=== PATIENT | male | born 1930 | race Caucasian/White ===

== ENCOUNTER 2016-08-28 14:53 | Inpatient (IN) | payer MEDICARE, BC ==
[~2016-08-28] VITALS: Ht 180.3 cm; Wt 108.4 kg
[~2016-08-28 14:53] MED LIST: AMLO5TAB66 PO; BUME1TAB12 PO; CAPT50TA3 PO; CELE200 PO; ESOM40CA PO; INSLAN SQ; SIMV40TA5 PO; SITA1TAB6 PO; [UNRECOGNIZED DRUG - CODE] PO
[2016-08-28] MEDS ORDERED: DEXTROSE 50%-WATER 25 GM/50 ML SYRINGE IVP PRN (16:45)
[2016-08-28] MEDS ORDERED: ACETAMINOPHEN 325 MG TABLET PO PRN (16:45)
[2016-08-28] MEDS ORDERED: DOCUSATE SODIUM 283 MG/5 ML MINI-ENEMA PR PRN (16:45)
[2016-08-28 17:00] VITALS: BP 131/62
[2016-08-28 18:01] LABS: GLUCOSE,POINT OF CARE 220 MG/DL (70-110)
[2016-08-28] MEDS: INSULIN ASPART 100 UNITS/ML SQ PRN ×2 (18:08→20:27)
[2016-08-28 20:13] VITALS: BP 112/63
[2016-08-28] MEDS: ATORVASTATIN CALCIUM 40 MG TABLET PO SCH (20:14)
[2016-08-28] MEDS: PANTOPRAZOLE SODIUM 40 MG DR TABLET PO SCH (20:14)
[2016-08-28] MEDS: QUEtiapine FUMARATE 25 MG TABLET PO SCH (20:14)
[2016-08-28] MEDS: SENNA 187 MG TABLET PO SCH (20:14)
[2016-08-28] MEDS: DOCUSATE SODIUM 100 MG CAPSULE PO SCH (20:14)
[2016-08-28] MEDS: METOPROLOL TARTRATE 25 MG TABLET PO SCH (20:15)
[2016-08-28] MEDS: HEPARIN SODIUM,PORCINE 5,000 UNITS/ML VIAL SQ SCH (20:21)
[2016-08-28] MEDS ORDERED: INSULIN GLARGINE,HUM.REC.ANLOG 100 UNITS/ML SQ SCH (21:00)
[2016-08-28 22:46] LABS: GLUCOSE COMMENT 1 Received Meds; GLUCOSE,POINT OF CARE 233 MG/DL (70-110)
[2016-08-29 00:50] VITALS: BP 130/68
[2016-08-29 05:51] LABS: GLUCOSE,POINT OF CARE 155 MG/DL (70-110)
[2016-08-29 07:16] LABS: ALBUMIN 2.9 g/dL (3.4-5.0); BILIRUBIN,TOTAL 0.7 mg/dL (0.1-1.0); CALCIUM, TOTAL 8.9 mg/dL (8.8-10.5); CREATININE 1.33 mg/dL (0.60-1.30); POTASSIUM 3.4 mmol/L (3.5-5.1); TOTAL PROTEIN, SERUM 6.6 g/dL (6.4-8.2)
[2016-08-29 07:23] LABS: BASOPHILS % (AUTO) 0.3 % (0.0-2.0); EOSINOPHILS % (AUTO) 2.6 % (1.0-6.0); HEMATOCRIT 38.1 % (41-53); HEMOGLOBIN 12.3 g/dL (13.5-17.5); LYMPHOCYTES # (AUTO) 1.1 K/uL (1.0-4.8); LYMPHOCYTES % (AUTO) 12.2 % (22.0-44.0); MEAN CORPUSCULAR HEMOGLOBIN 26.3 pg (26.0-34.0); MEAN CORPUSCULAR HGB CONC 32.3 G/dL (31.0-37.0); MEAN CORPUSCULAR VOLUME 82 fL (80-100); MONOCYTES # (AUTO) 1.4 K/uL (0.1-1.0); NEUTROPHILS # (AUTO) 6.4 K/uL (1.8-7.7); NEUTROPHILS % (AUTO) 69.9 % (40.0-70.0); PLATELET COUNT (AUTO) 184 K/uL (150-450); RED BLOOD CELL COUNT(AUTO) 4.66 MIL/uL (4.50-5.90); RED CELL DISTRIBUTION WIDTH 17.1 % (11.5-14.5); WHITE BLOOD COUNT (AUTO) 9.1 K/uL (4.5-11.0)
[2016-08-29 07:43] VITALS: BP 141/79
[2016-08-29] MEDS: BUMETANIDE 1 MG TABLET PO SCH (08:09)
[2016-08-29] MEDS: DOCUSATE SODIUM 100 MG CAPSULE PO SCH ×2 (08:10→21:14)
[2016-08-29] MEDS: POLYETHYLENE GLYCOL 3350 17 GM PACKET PO SCH (08:11)
[2016-08-29] MEDS: METOPROLOL TARTRATE 25 MG TABLET PO SCH ×2 (08:11→21:00)
[2016-08-29] MEDS: CLOPIDOGREL BISULFATE 75 MG TABLET PO SCH (08:11)
[2016-08-29] MEDS: HEPARIN SODIUM,PORCINE 5,000 UNITS/ML VIAL SQ SCH ×2 (08:11→20:59)
[2016-08-29] MEDS: PANTOPRAZOLE SODIUM 40 MG DR TABLET PO SCH ×2 (08:11→21:00)
[2016-08-29] MEDS: INSULIN ASPART 100 UNITS/ML SQ PRN ×4 (08:17→21:03)
[2016-08-29] MEDS: ACETAMINOPHEN 325 MG TABLET PO PRN ×3 (09:41→21:00)
[2016-08-29 10:16] LABS: APPEARANCE,URINE CLEAR (CLEAR); GLUCOSE, URINE (UA) 500 mg/dL (NEGATIVE); KETONES,URINE NEGATIVE (NEGATIVE); LEUKOCYTE ESTERASE ,URINE NEGATIVE (NEGATIVE); OCCULT BLOOD,URINE NEGATIVE (NEGATIVE); PH,URINE 5.5 (5.0-8.0); PROTEIN,URINE TRACE (NEGATIVE)
[2016-08-29 10:21] LABS: RBC,URINE None Seen /HPF (0-2); WBC,URINE None Seen /HPF (0-5)
[2016-08-29] MEDS ORDERED: POTASSIUM CHLORIDE 10% 40 MEQ/30 ML LIQUID UDCUP PO ONE (11:00)
[2016-08-29 12:28] LABS: GLUCOSE,POINT OF CARE 247 MG/DL (70-110)
[2016-08-29 15:51] VITALS: BP 123/69
[2016-08-29 16:44] VITALS: BP 123/69
[2016-08-29 17:27] LABS: GLUCOSE,POINT OF CARE 200 MG/DL (70-110)
[2016-08-29 21:00] VITALS: BP 121/73
[2016-08-29] MEDS: ATORVASTATIN CALCIUM 40 MG TABLET PO SCH (21:00)
[2016-08-29] MEDS: SENNA 187 MG TABLET PO SCH (21:00)
[2016-08-29] MEDS: QUEtiapine FUMARATE 25 MG TABLET PO SCH (21:00)
[2016-08-29] MEDS ORDERED: INSULIN DETEMIR 100 UNITS/ML SQ SCH (21:00)
[2016-08-29] MEDS: INSULIN DETEMIR 100 UNITS/ML SQ SCH (21:01)
[2016-08-29 21:52] LABS: GLUCOSE,POINT OF CARE 196 MG/DL (70-110)
[2016-08-30 00:51] VITALS: BP 116/60
[2016-08-30 06:17] LABS: GLUCOSE,POINT OF CARE 152 MG/DL (70-110)
[2016-08-30 07:15] VITALS: BP 132/72
[2016-08-30] MEDS: ACETAMINOPHEN 325 MG TABLET PO PRN ×2 (07:57→19:06)
[2016-08-30] MEDS: POLYETHYLENE GLYCOL 3350 17 GM PACKET PO SCH (08:34)
[2016-08-30] MEDS: CLOPIDOGREL BISULFATE 75 MG TABLET PO SCH (08:34)
[2016-08-30] MEDS: DOCUSATE SODIUM 100 MG CAPSULE PO SCH ×2 (08:34→21:07)
[2016-08-30] MEDS: PANTOPRAZOLE SODIUM 40 MG DR TABLET PO SCH ×2 (08:34→21:08)
[2016-08-30] MEDS: BUMETANIDE 1 MG TABLET PO SCH (08:34)
[2016-08-30] MEDS: METOPROLOL TARTRATE 25 MG TABLET PO SCH ×2 (08:34→21:08)
[2016-08-30] MEDS: HEPARIN SODIUM,PORCINE 5,000 UNITS/ML VIAL SQ SCH ×2 (08:35→21:08)
[2016-08-30] MEDS: INSULIN ASPART 100 UNITS/ML SQ PRN ×4 (08:41→21:18)
[2016-08-30 11:47] LABS: GLUCOSE COMMENT 1 Received Meds; GLUCOSE,POINT OF CARE 238 MG/DL (70-110)
[2016-08-30 15:11] VITALS: BP 132/60
[2016-08-30 18:16] LABS: GLUCOSE COMMENT 1 Received Meds; GLUCOSE,POINT OF CARE 187 MG/DL (70-110)
[2016-08-30 21:00] VITALS: BP 126/62
[2016-08-30] MEDS: QUEtiapine FUMARATE 25 MG TABLET PO SCH ×2 (21:00→21:08)
[2016-08-30] MEDS: ATORVASTATIN CALCIUM 40 MG TABLET PO SCH (21:08)
[2016-08-30] MEDS: SENNA 187 MG TABLET PO SCH (21:08)
[2016-08-30] MEDS: INSULIN DETEMIR 100 UNITS/ML SQ SCH (21:17)
[2016-08-30 23:01] LABS: GLUCOSE COMMENT 1 Received Meds; GLUCOSE,POINT OF CARE 234 MG/DL (70-110)
[2016-08-31] VITALS: BP 132/62
[2016-08-31 05:32] LABS: GLUCOSE,POINT OF CARE 159 MG/DL (70-110)
[2016-08-31 07:21] VITALS: BP 144/71
[2016-08-31] MEDS: CLOPIDOGREL BISULFATE 75 MG TABLET PO SCH (08:27)
[2016-08-31] MEDS: PANTOPRAZOLE SODIUM 40 MG DR TABLET PO SCH ×2 (08:27→20:13)
[2016-08-31] MEDS: METOPROLOL TARTRATE 25 MG TABLET PO SCH ×2 (08:27→20:13)
[2016-08-31] MEDS: BUMETANIDE 1 MG TABLET PO SCH (08:27)
[2016-08-31] MEDS: HEPARIN SODIUM,PORCINE 5,000 UNITS/ML VIAL SQ SCH ×2 (08:27→20:13)
[2016-08-31] MEDS: DOCUSATE SODIUM 100 MG CAPSULE PO SCH ×2 (08:28→20:13)
[2016-08-31] MEDS: POLYETHYLENE GLYCOL 3350 17 GM PACKET PO SCH (08:28)
[2016-08-31] MEDS: INSULIN ASPART 100 UNITS/ML SQ PRN ×4 (08:38→20:16)
[2016-08-31 12:32] LABS: GLUCOSE COMMENT 1 Received Meds; GLUCOSE,POINT OF CARE 258 MG/DL (70-110)
[2016-08-31 15:15] VITALS: BP 115/74
[2016-08-31 17:42] LABS: GLUCOSE COMMENT 1 Received Meds; GLUCOSE,POINT OF CARE 252 MG/DL (70-110)
[2016-08-31 20:00] VITALS: BP 134/92
[2016-08-31] MEDS: SENNA 187 MG TABLET PO SCH (20:13)
[2016-08-31] MEDS: QUEtiapine FUMARATE 25 MG TABLET PO SCH (20:13)
[2016-08-31] MEDS: ATORVASTATIN CALCIUM 40 MG TABLET PO SCH (20:13)
[2016-08-31] MEDS: INSULIN DETEMIR 100 UNITS/ML SQ SCH (20:16)
[2016-08-31 21:47] LABS: GLUCOSE COMMENT 1 Received Meds; GLUCOSE,POINT OF CARE 230 MG/DL (70-110)
[2016-08-31] MEDS ORDERED: METO25 PO (22:02)
[2016-08-31] MEDS ORDERED: INSNOV SQ (22:02)
[2016-09-01] VITALS: BP 110/57
[2016-09-01 05:47] LABS: GLUCOSE,POINT OF CARE 154 MG/DL (70-110)
[2016-09-01 07:00] VITALS: BP 124/64
[2016-09-01] MEDS: POLYETHYLENE GLYCOL 3350 17 GM PACKET PO SCH (08:16)
[2016-09-01] MEDS: METOPROLOL TARTRATE 25 MG TABLET PO SCH ×2 (08:16→20:39)
[2016-09-01] MEDS: DOCUSATE SODIUM 100 MG CAPSULE PO SCH ×2 (08:16→20:39)
[2016-09-01] MEDS: BUMETANIDE 1 MG TABLET PO SCH (08:16)
[2016-09-01] MEDS: HEPARIN SODIUM,PORCINE 5,000 UNITS/ML VIAL SQ SCH ×2 (08:17→20:39)
[2016-09-01] MEDS: PANTOPRAZOLE SODIUM 40 MG DR TABLET PO SCH ×2 (08:17→20:39)
[2016-09-01] MEDS: CLOPIDOGREL BISULFATE 75 MG TABLET PO SCH (08:17)
[2016-09-01] MEDS: INSULIN ASPART 100 UNITS/ML SQ PRN ×4 (08:18→20:43)
[2016-09-01 08:40] LABS: ALBUMIN 2.9 g/dL (3.4-5.0); BILIRUBIN,TOTAL 0.5 mg/dL (0.1-1.0); CALCIUM, TOTAL 9.2 mg/dL (8.8-10.5); CREATININE 1.29 mg/dL (0.60-1.30); POTASSIUM 4.2 mmol/L (3.5-5.1); TOTAL PROTEIN, SERUM 7.1 g/dL (6.4-8.2)
[2016-09-01 12:52] LABS: GLUCOSE,POINT OF CARE 236 MG/DL (70-110)
[2016-09-01 15:30] VITALS: BP 129/61
[2016-09-01 20:30] VITALS: BP 122/63
[2016-09-01] MEDS: ATORVASTATIN CALCIUM 40 MG TABLET PO SCH (20:39)
[2016-09-01] MEDS: SENNA 187 MG TABLET PO SCH (20:39)
[2016-09-01] MEDS: MELATONIN 3 MG TABLET PO SCH (20:39)
[2016-09-01] MEDS ORDERED: INSULIN DETEMIR 100 UNITS/ML SQ SCH (21:00)
[2016-09-01 21:52] LABS: GLUCOSE COMMENT 1 Received Meds; GLUCOSE,POINT OF CARE 275 MG/DL (70-110)
[2016-09-01 21:52] LABS: GLUCOSE COMMENT 1 Received Meds; GLUCOSE,POINT OF CARE 234 MG/DL (70-110)
[2016-09-01 23:55] VITALS: BP 108/65
[2016-09-02 05:57] LABS: GLUCOSE,POINT OF CARE 140 MG/DL (70-110)
[2016-09-02 08:03] VITALS: BP 144/75
[2016-09-02] MEDS: DOCUSATE SODIUM 100 MG CAPSULE PO SCH ×2 (08:14→20:18)
[2016-09-02] MEDS: BUMETANIDE 1 MG TABLET PO SCH (08:14)
[2016-09-02] MEDS: METOPROLOL TARTRATE 25 MG TABLET PO SCH ×2 (08:14→20:12)
[2016-09-02] MEDS: POLYETHYLENE GLYCOL 3350 17 GM PACKET PO SCH (08:14)
[2016-09-02] MEDS: CLOPIDOGREL BISULFATE 75 MG TABLET PO SCH (08:15)
[2016-09-02] MEDS: HEPARIN SODIUM,PORCINE 5,000 UNITS/ML VIAL SQ SCH ×2 (08:15→20:12)
[2016-09-02] MEDS: PANTOPRAZOLE SODIUM 40 MG DR TABLET PO SCH ×2 (08:15→20:12)
[2016-09-02 13:21] LABS: GLUCOSE,POINT OF CARE 219 MG/DL (70-110)
[2016-09-02] MEDS: INSULIN ASPART 100 UNITS/ML SQ PRN ×3 (13:37→20:15)
[2016-09-02 15:30] VITALS: BP 106/61
[2016-09-02 17:22] LABS: GLUCOSE COMMENT 1 Received Meds; GLUCOSE,POINT OF CARE 220 MG/DL (70-110)
[2016-09-02 20:00] VITALS: BP 138/63
[2016-09-02] MEDS: ATORVASTATIN CALCIUM 40 MG TABLET PO SCH (20:12)
[2016-09-02] MEDS: MELATONIN 3 MG TABLET PO SCH (20:12)
[2016-09-02] MEDS: SENNA 187 MG TABLET PO SCH (20:12)
[2016-09-02] MEDS: INSULIN DETEMIR 100 UNITS/ML SQ SCH (20:16)
[2016-09-02 20:57] LABS: GLUCOSE COMMENT 1 Received Meds; GLUCOSE,POINT OF CARE 264 MG/DL (70-110)
[2016-09-03] VITALS: BP 130/57
[2016-09-03 05:52] LABS: GLUCOSE,POINT OF CARE 139 MG/DL (70-110)
[2016-09-03 07:15] VITALS: BP 111/54
[2016-09-03] MEDS: DOCUSATE SODIUM 100 MG CAPSULE PO SCH ×2 (08:17→21:18)
[2016-09-03] MEDS: BUMETANIDE 1 MG TABLET PO SCH (08:17)
[2016-09-03] MEDS: HEPARIN SODIUM,PORCINE 5,000 UNITS/ML VIAL SQ SCH ×2 (08:18→21:18)
[2016-09-03] MEDS: POLYETHYLENE GLYCOL 3350 17 GM PACKET PO SCH (08:18)
[2016-09-03] MEDS: PANTOPRAZOLE SODIUM 40 MG DR TABLET PO SCH ×2 (08:18→21:18)
[2016-09-03] MEDS: CLOPIDOGREL BISULFATE 75 MG TABLET PO SCH (08:18)
[2016-09-03] MEDS: METOPROLOL TARTRATE 25 MG TABLET PO SCH ×2 (08:18→21:18)
[2016-09-03 12:37] LABS: GLUCOSE,POINT OF CARE 210 MG/DL (70-110)
[2016-09-03] MEDS: INSULIN ASPART 100 UNITS/ML SQ PRN ×3 (13:11→21:21)
[2016-09-03 16:51] VITALS: BP 114/51
[2016-09-03 18:18] LABS: GLUCOSE COMMENT 1 Received Meds; GLUCOSE,POINT OF CARE 228 MG/DL (70-110)
[2016-09-03 21:00] VITALS: BP 131/72
[2016-09-03] MEDS: ATORVASTATIN CALCIUM 40 MG TABLET PO SCH (21:18)
[2016-09-03] MEDS: MELATONIN 3 MG TABLET PO SCH (21:18)
[2016-09-03] MEDS: SENNA 187 MG TABLET PO SCH (21:18)
[2016-09-03] MEDS: INSULIN DETEMIR 100 UNITS/ML SQ SCH (21:19)
[2016-09-03 21:22] LABS: GLUCOSE COMMENT 1 Received Meds; GLUCOSE,POINT OF CARE 256 MG/DL (70-110)
[2016-09-04 00:48] VITALS: BP 129/58
[2016-09-04 06:07] LABS: GLUCOSE,POINT OF CARE 152 MG/DL (70-110)
[2016-09-04 08:12] VITALS: BP 125/77
[2016-09-04] MEDS: CLOPIDOGREL BISULFATE 75 MG TABLET PO SCH (09:57)
[2016-09-04] MEDS: HEPARIN SODIUM,PORCINE 5,000 UNITS/ML VIAL SQ SCH ×2 (09:57→21:17)
[2016-09-04] MEDS: METOPROLOL TARTRATE 25 MG TABLET PO SCH ×2 (09:57→21:18)
[2016-09-04] MEDS: PANTOPRAZOLE SODIUM 40 MG DR TABLET PO SCH ×2 (09:57→21:18)
[2016-09-04] MEDS: DOCUSATE SODIUM 100 MG CAPSULE PO SCH ×2 (09:57→21:18)
[2016-09-04] MEDS: POLYETHYLENE GLYCOL 3350 17 GM PACKET PO SCH (09:57)
[2016-09-04] MEDS: BUMETANIDE 1 MG TABLET PO SCH (09:57)
[2016-09-04] MEDS: INSULIN ASPART 100 UNITS/ML SQ PRN ×4 (10:00→21:23)
[2016-09-04 13:01] LABS: GLUCOSE,POINT OF CARE 284 MG/DL (70-110)
[2016-09-04 15:46] VITALS: BP 136/63
[2016-09-04 19:57] LABS: GLUCOSE COMMENT 1 Received Meds; GLUCOSE,POINT OF CARE 188 MG/DL (70-110)
[2016-09-04] MEDS: ATORVASTATIN CALCIUM 40 MG TABLET PO SCH (21:17)
[2016-09-04] MEDS: SENNA 187 MG TABLET PO SCH (21:18)
[2016-09-04] MEDS: MELATONIN 3 MG TABLET PO SCH (21:18)
[2016-09-04] MEDS: INSULIN DETEMIR 100 UNITS/ML SQ SCH (21:21)
[2016-09-04 21:24] VITALS: BP 124/65
[2016-09-04 21:51] LABS: GLUCOSE COMMENT 1 Received Meds; GLUCOSE,POINT OF CARE 253 MG/DL (70-110)
[2016-09-05] VITALS: BP 127/57
[2016-09-05 05:52] LABS: GLUCOSE,POINT OF CARE 139 MG/DL (70-110)
[2016-09-05] MEDS: ACETAMINOPHEN 325 MG TABLET PO PRN (06:03)
[2016-09-05 07:14] VITALS: BP 135/66
[2016-09-05] MEDS: HEPARIN SODIUM,PORCINE 5,000 UNITS/ML VIAL SQ SCH ×2 (08:03→20:22)
[2016-09-05] MEDS: BUMETANIDE 1 MG TABLET PO SCH (08:03)
[2016-09-05] MEDS: DOCUSATE SODIUM 100 MG CAPSULE PO SCH ×2 (08:03→20:22)
[2016-09-05] MEDS: METOPROLOL TARTRATE 25 MG TABLET PO SCH ×2 (08:03→20:22)
[2016-09-05] MEDS: POLYETHYLENE GLYCOL 3350 17 GM PACKET PO SCH (08:03)
[2016-09-05] MEDS: PANTOPRAZOLE SODIUM 40 MG DR TABLET PO SCH ×2 (08:03→20:23)
[2016-09-05] MEDS: CLOPIDOGREL BISULFATE 75 MG TABLET PO SCH (08:04)
[2016-09-05 12:31] LABS: GLUCOSE,POINT OF CARE 203 MG/DL (70-110)
[2016-09-05] MEDS: INSULIN ASPART 100 UNITS/ML SQ PRN ×3 (12:32→20:24)
[2016-09-05 15:41] VITALS: BP 111/67
[2016-09-05] MEDS: MELATONIN 3 MG TABLET PO SCH (20:22)
[2016-09-05] MEDS: ATORVASTATIN CALCIUM 40 MG TABLET PO SCH (20:22)
[2016-09-05] MEDS: SENNA 187 MG TABLET PO SCH (20:23)
[2016-09-05] MEDS: INSULIN DETEMIR 100 UNITS/ML SQ SCH (20:26)
[2016-09-05 20:34] VITALS: BP 115/70
[2016-09-06 00:23] VITALS: BP 144/64
[2016-09-06 00:31] LABS: GLUCOSE,POINT OF CARE 266 MG/DL (70-110)
[2016-09-06 00:31] LABS: GLUCOSE,POINT OF CARE 175 MG/DL (70-110)
[2016-09-06 05:57] LABS: GLUCOSE,POINT OF CARE 125 MG/DL (70-110)
[2016-09-06] MEDS: DOCUSATE SODIUM 100 MG CAPSULE PO SCH ×2 (08:30→21:16)
[2016-09-06] MEDS: CLOPIDOGREL BISULFATE 75 MG TABLET PO SCH (08:30)
[2016-09-06] MEDS: PANTOPRAZOLE SODIUM 40 MG DR TABLET PO SCH ×2 (08:31→21:16)
[2016-09-06] MEDS: BUMETANIDE 1 MG TABLET PO SCH (08:31)
[2016-09-06] MEDS: METOPROLOL TARTRATE 25 MG TABLET PO SCH ×2 (08:31→21:16)
[2016-09-06] MEDS: POLYETHYLENE GLYCOL 3350 17 GM PACKET PO SCH (08:31)
[2016-09-06] MEDS: HEPARIN SODIUM,PORCINE 5,000 UNITS/ML VIAL SQ SCH ×2 (08:31→21:16)
[2016-09-06 09:08] VITALS: BP 130/71
[2016-09-06] MEDS: INSULIN ASPART 100 UNITS/ML SQ PRN ×3 (13:24→21:25)
[2016-09-06] MEDS ORDERED: *PATIENT'S OWN MED [ENTER DRUG, DOSE, FREQUENCY IN COMMENTS] CLINICAL PRN ×2 (15:30)
[2016-09-06 17:00] VITALS: BP 118/53
[2016-09-06 17:51] LABS: GLUCOSE,POINT OF CARE 200 MG/DL (70-110)
[2016-09-06 17:51] LABS: GLUCOSE,POINT OF CARE 251 MG/DL (70-110)
[2016-09-06] MEDS: MELATONIN 3 MG TABLET PO SCH (21:16)
[2016-09-06] MEDS: SENNA 187 MG TABLET PO SCH (21:16)
[2016-09-06] MEDS: ATORVASTATIN CALCIUM 40 MG TABLET PO SCH (21:16)
[2016-09-06] MEDS: INSULIN DETEMIR 100 UNITS/ML SQ SCH (21:24)
[2016-09-06 21:50] VITALS: BP 114/68
[2016-09-06 22:27] LABS: GLUCOSE COMMENT 1 Received Meds; GLUCOSE,POINT OF CARE 254 MG/DL (70-110)
[2016-09-06 23:36] VITALS: BP 140/79
[2016-09-07 06:26] LABS: GLUCOSE,POINT OF CARE 116 MG/DL (70-110)
[2016-09-07 08:00] VITALS: BP 141/71
[2016-09-07] MEDS: PANTOPRAZOLE SODIUM 40 MG DR TABLET PO SCH ×2 (09:46→20:01)
[2016-09-07] MEDS: BUMETANIDE 1 MG TABLET PO SCH (09:46)
[2016-09-07] MEDS: POLYETHYLENE GLYCOL 3350 17 GM PACKET PO SCH (09:46)
[2016-09-07] MEDS: METOPROLOL TARTRATE 25 MG TABLET PO SCH ×2 (09:46→20:01)
[2016-09-07] MEDS: CLOPIDOGREL BISULFATE 75 MG TABLET PO SCH (09:46)
[2016-09-07] MEDS: HEPARIN SODIUM,PORCINE 5,000 UNITS/ML VIAL SQ SCH ×2 (09:46→20:01)
[2016-09-07] MEDS: DOCUSATE SODIUM 100 MG CAPSULE PO SCH ×2 (09:46→20:01)
[2016-09-07] MEDS ORDERED: [UNRECOGNIZED DRUG - OTHER] SL PRN (10:30)
[2016-09-07 12:47] LABS: GLUCOSE COMMENT 1 Received Meds; GLUCOSE,POINT OF CARE 170 MG/DL (70-110)
[2016-09-07] MEDS: INSULIN ASPART 100 UNITS/ML SQ PRN ×3 (13:32→20:21)
[2016-09-07 15:50] VITALS: BP 116/60
[2016-09-07] MEDS: ATORVASTATIN CALCIUM 40 MG TABLET PO SCH (20:01)
[2016-09-07] MEDS: SENNA 187 MG TABLET PO SCH (20:01)
[2016-09-07] MEDS: MELATONIN 3 MG TABLET PO SCH (20:02)
[2016-09-07 20:30] VITALS: BP 120/63
[2016-09-07] MEDS: INSULIN DETEMIR 100 UNITS/ML SQ SCH (20:32)
[2016-09-07 20:47] LABS: GLUCOSE,POINT OF CARE 256 MG/DL (70-110)
[2016-09-07 20:47] LABS: GLUCOSE,POINT OF CARE 198 MG/DL (70-110)
[2016-09-08 04:00] VITALS: BP 137/76
[2016-09-08 06:11] LABS: GLUCOSE,POINT OF CARE 154 MG/DL (70-110)
[2016-09-08 07:35] VITALS: BP 115/63
[2016-09-08] MEDS: POLYETHYLENE GLYCOL 3350 17 GM PACKET PO SCH (08:27)
[2016-09-08] MEDS: BUMETANIDE 1 MG TABLET PO SCH (08:27)
[2016-09-08] MEDS: PANTOPRAZOLE SODIUM 40 MG DR TABLET PO SCH ×2 (08:27→20:41)
[2016-09-08] MEDS: CLOPIDOGREL BISULFATE 75 MG TABLET PO SCH (08:27)
[2016-09-08] MEDS: METOPROLOL TARTRATE 25 MG TABLET PO SCH ×2 (08:27→20:42)
[2016-09-08] MEDS: DOCUSATE SODIUM 100 MG CAPSULE PO SCH ×2 (08:28→20:42)
[2016-09-08] MEDS: HEPARIN SODIUM,PORCINE 5,000 UNITS/ML VIAL SQ SCH ×2 (08:29→20:41)
[2016-09-08] MEDS: INSULIN ASPART 100 UNITS/ML SQ PRN ×4 (08:33→20:47)
[2016-09-08 11:52] LABS: GLUCOSE,POINT OF CARE 252 MG/DL (70-110)
[2016-09-08] MEDS ORDERED: SIMV-260 PO (11:59)
[2016-09-08 16:10] VITALS: BP 103/56
[2016-09-08] MEDS: ATORVASTATIN CALCIUM 40 MG TABLET PO SCH (20:41)
[2016-09-08] MEDS: MELATONIN 3 MG TABLET PO SCH (20:42)
[2016-09-08] MEDS: SENNA 187 MG TABLET PO SCH (20:42)
[2016-09-08] MEDS: INSULIN DETEMIR 100 UNITS/ML SQ SCH (20:46)
[2016-09-08 20:54] VITALS: BP 141/76
[2016-09-08 23:36] LABS: GLUCOSE,POINT OF CARE 217 MG/DL (70-110)
[2016-09-08 23:36] LABS: GLUCOSE,POINT OF CARE 201 MG/DL (70-110)
[2016-09-09 01:02] VITALS: BP 146/71
[2016-09-09 07:00] VITALS: BP 110/72
[2016-09-09] MEDS: POLYETHYLENE GLYCOL 3350 17 GM PACKET PO SCH (08:18)
[2016-09-09] MEDS: CLOPIDOGREL BISULFATE 75 MG TABLET PO SCH (08:18)
[2016-09-09] MEDS: METOPROLOL TARTRATE 25 MG TABLET PO SCH ×2 (08:18→20:51)
[2016-09-09] MEDS: HEPARIN SODIUM,PORCINE 5,000 UNITS/ML VIAL SQ SCH ×2 (08:18→20:51)
[2016-09-09] MEDS: BUMETANIDE 1 MG TABLET PO SCH (08:18)
[2016-09-09] MEDS: PANTOPRAZOLE SODIUM 40 MG DR TABLET PO SCH ×2 (08:18→20:50)
[2016-09-09] MEDS: DOCUSATE SODIUM 100 MG CAPSULE PO SCH ×2 (08:18→20:51)
[2016-09-09 08:31] LABS: GLUCOSE,POINT OF CARE 126 MG/DL (70-110)
[2016-09-09 12:37] LABS: GLUCOSE,POINT OF CARE 213 MG/DL (70-110)
[2016-09-09] MEDS: INSULIN ASPART 100 UNITS/ML SQ PRN ×3 (13:14→21:03)
[2016-09-09 16:01] VITALS: BP 110/56
[2016-09-09 20:50] VITALS: BP 135/68
[2016-09-09] MEDS: MELATONIN 3 MG TABLET PO SCH (20:50)
[2016-09-09] MEDS: SENNA 187 MG TABLET PO SCH (20:50)
[2016-09-09] MEDS: ATORVASTATIN CALCIUM 40 MG TABLET PO SCH (20:50)
[2016-09-09] MEDS: INSULIN DETEMIR 100 UNITS/ML SQ SCH (21:02)
[2016-09-09 22:21] LABS: GLUCOSE COMMENT 1 Received Meds; GLUCOSE,POINT OF CARE 180 MG/DL (70-110)
[2016-09-09 22:22] LABS: GLUCOSE COMMENT 1 Received Meds; GLUCOSE,POINT OF CARE 210 MG/DL (70-110)
[2016-09-10 04:00] VITALS: BP 123/69
[2016-09-10 06:12] LABS: GLUCOSE,POINT OF CARE 129 MG/DL (70-110)
[2016-09-10 07:30] VITALS: BP 121/64
[2016-09-10] MEDS: POLYETHYLENE GLYCOL 3350 17 GM PACKET PO SCH (08:00)
[2016-09-10] MEDS: PANTOPRAZOLE SODIUM 40 MG DR TABLET PO SCH ×2 (08:00→21:10)
[2016-09-10] MEDS: HEPARIN SODIUM,PORCINE 5,000 UNITS/ML VIAL SQ SCH ×2 (08:00→21:10)
[2016-09-10] MEDS: METOPROLOL TARTRATE 25 MG TABLET PO SCH ×2 (08:00→21:13)
[2016-09-10] MEDS: DOCUSATE SODIUM 100 MG CAPSULE PO SCH ×2 (08:00→21:10)
[2016-09-10] MEDS: CLOPIDOGREL BISULFATE 75 MG TABLET PO SCH (08:00)
[2016-09-10] MEDS: BUMETANIDE 1 MG TABLET PO SCH (08:00)
[2016-09-10] MEDS: INSULIN ASPART 100 UNITS/ML SQ PRN ×3 (12:49→21:24)
[2016-09-10 13:01] LABS: GLUCOSE,POINT OF CARE 172 MG/DL (70-110)
[2016-09-10 15:12] VITALS: BP 105/51
[2016-09-10] MEDS: SENNA 187 MG TABLET PO SCH (21:10)
[2016-09-10] MEDS: ATORVASTATIN CALCIUM 40 MG TABLET PO SCH (21:10)
[2016-09-10] MEDS: MELATONIN 3 MG TABLET PO SCH (21:10)
[2016-09-10 21:14] VITALS: BP 133/68
[2016-09-10] MEDS: INSULIN DETEMIR 100 UNITS/ML SQ SCH (21:23)
[2016-09-10 22:26] LABS: GLUCOSE COMMENT 1 Received Meds; GLUCOSE,POINT OF CARE 220 MG/DL (70-110)
[2016-09-10 22:26] LABS: GLUCOSE COMMENT 1 Received Meds; GLUCOSE,POINT OF CARE 195 MG/DL (70-110)
[2016-09-11] VITALS: BP 133/52
[2016-09-11 05:56] LABS: GLUCOSE,POINT OF CARE 86 MG/DL (70-110)
[2016-09-11 07:43] VITALS: BP 125/57
[2016-09-11] MEDS: HEPARIN SODIUM,PORCINE 5,000 UNITS/ML VIAL SQ SCH ×2 (09:10→20:39)
[2016-09-11] MEDS: POLYETHYLENE GLYCOL 3350 17 GM PACKET PO SCH (09:11)
[2016-09-11] MEDS: PANTOPRAZOLE SODIUM 40 MG DR TABLET PO SCH ×2 (09:11→20:39)
[2016-09-11] MEDS: CLOPIDOGREL BISULFATE 75 MG TABLET PO SCH (09:11)
[2016-09-11] MEDS: METOPROLOL TARTRATE 25 MG TABLET PO SCH ×2 (09:11→20:39)
[2016-09-11] MEDS: BUMETANIDE 1 MG TABLET PO SCH (09:11)
[2016-09-11] MEDS: DOCUSATE SODIUM 100 MG CAPSULE PO SCH ×2 (09:11→20:39)
[2016-09-11 11:52] LABS: GLUCOSE COMMENT 1 Received Meds; GLUCOSE,POINT OF CARE 210 MG/DL (70-110)
[2016-09-11] MEDS: INSULIN ASPART 100 UNITS/ML SQ PRN ×3 (12:19→21:00)
[2016-09-11 15:27] VITALS: BP 105/65
[2016-09-11 17:26] LABS: GLUCOSE COMMENT 1 Received Meds; GLUCOSE,POINT OF CARE 166 MG/DL (70-110)
[2016-09-11 20:37] VITALS: BP 108/42
[2016-09-11] MEDS: MELATONIN 3 MG TABLET PO SCH (20:39)
[2016-09-11] MEDS: ATORVASTATIN CALCIUM 40 MG TABLET PO SCH (20:39)
[2016-09-11] MEDS: SENNA 187 MG TABLET PO SCH (20:39)
[2016-09-11] MEDS: INSULIN DETEMIR 100 UNITS/ML SQ SCH (20:43)
[2016-09-11 21:07] LABS: GLUCOSE COMMENT 1 Received Meds; GLUCOSE,POINT OF CARE 247 MG/DL (70-110)
[2016-09-12] VITALS: BP 136/69
[2016-09-12 05:57] LABS: GLUCOSE,POINT OF CARE 136 MG/DL (70-110)
[2016-09-12 07:15] VITALS: BP 118/58
[2016-09-12] MEDS: PANTOPRAZOLE SODIUM 40 MG DR TABLET PO SCH ×2 (07:58→21:50)
[2016-09-12] MEDS: POLYETHYLENE GLYCOL 3350 17 GM PACKET PO SCH (07:58)
[2016-09-12] MEDS: METOPROLOL TARTRATE 25 MG TABLET PO SCH ×2 (07:58→21:50)
[2016-09-12] MEDS: BUMETANIDE 1 MG TABLET PO SCH (07:58)
[2016-09-12] MEDS: HEPARIN SODIUM,PORCINE 5,000 UNITS/ML VIAL SQ SCH ×2 (07:58→21:50)
[2016-09-12] MEDS: DOCUSATE SODIUM 100 MG CAPSULE PO SCH ×2 (07:58→21:50)
[2016-09-12] MEDS: CLOPIDOGREL BISULFATE 75 MG TABLET PO SCH (07:58)
[2016-09-12] MEDS: INSULIN DETEMIR 100 UNITS/ML SQ SCH (11:16)
[2016-09-12 12:27] LABS: GLUCOSE,POINT OF CARE 175 MG/DL (70-110)
[2016-09-12] MEDS: INSULIN ASPART 100 UNITS/ML SQ PRN ×3 (13:25→21:58)
[2016-09-12 16:09] VITALS: BP 107/56
[2016-09-12 21:37] LABS: GLUCOSE COMMENT 1 Received Meds; GLUCOSE,POINT OF CARE 166 MG/DL (70-110)
[2016-09-12 21:37] LABS: GLUCOSE COMMENT 1 Received Meds; GLUCOSE,POINT OF CARE 238 MG/DL (70-110)
[2016-09-12] MEDS: SENNA 187 MG TABLET PO SCH (21:50)
[2016-09-12] MEDS: MELATONIN 3 MG TABLET PO SCH (21:50)
[2016-09-12] MEDS: ATORVASTATIN CALCIUM 40 MG TABLET PO SCH (21:50)
[2016-09-12 21:53] VITALS: BP 118/54
[2016-09-13 01:00] VITALS: BP 113/56
[2016-09-13 06:36] LABS: GLUCOSE,POINT OF CARE 105 MG/DL (70-110)
[2016-09-13 07:18] VITALS: BP 115/65
[2016-09-13] MEDS: METOPROLOL TARTRATE 25 MG TABLET PO SCH (08:10)
[2016-09-13] MEDS: BUMETANIDE 1 MG TABLET PO SCH (08:10)
[2016-09-13] MEDS: CLOPIDOGREL BISULFATE 75 MG TABLET PO SCH (08:10)
[2016-09-13] MEDS: HEPARIN SODIUM,PORCINE 5,000 UNITS/ML VIAL SQ SCH (08:10)
[2016-09-13] MEDS: DOCUSATE SODIUM 100 MG CAPSULE PO SCH (08:10)
[2016-09-13] MEDS: POLYETHYLENE GLYCOL 3350 17 GM PACKET PO SCH (08:10)
[2016-09-13] MEDS: PANTOPRAZOLE SODIUM 40 MG DR TABLET PO SCH (08:10)
[2016-09-13] MEDS: INSULIN DETEMIR 100 UNITS/ML SQ SCH (08:11)
[2016-09-13 12:32] LABS: GLUCOSE COMMENT 1 Received Meds; GLUCOSE,POINT OF CARE 174 MG/DL (70-110)
[2016-09-13] MEDS: INSULIN ASPART 100 UNITS/ML SQ PRN (13:11)
[2016-09-13] MEDS ORDERED: CLOP75 PO (13:58)
[2016-09-13] MEDS ORDERED: DSS100 PO (13:58)
[2016-09-13] MEDS ORDERED: PANT40TA25 PO (13:58)
[2016-09-13] MEDS ORDERED: INSU100V12 SQ (13:58)
[2016-09-13] MEDS ORDERED: METO25 PO (13:58)
[2016-09-13] MEDS ORDERED: SENN-30 PO (13:58)
[2016-09-13] MEDS ORDERED: BUME1TAB12 PO (13:58)
[2016-09-13] MEDS ORDERED: INSNOV SQ (13:58)
[2016-09-13] MEDS ORDERED: MIRAUD PO (13:58)
[2016-09-13] MEDS ORDERED: INSLAN SQ (14:18)
== END 2016-09-13 14:42 | disposition home health service (06) | DRG 56 ==
LOC: 2WR 16:20
DX: I69.351 Hemiplegia and hemiparesis following cerebral infarction affecting right dominant side (principal); I63.9 Cerebral infarction, unspecified; E87.1 Hypo-osmolality and hyponatremia; E44.0 Moderate protein-calorie malnutrition; I13.0 Hypertensive heart and chronic kidney disease with heart failure and stage 1 through stage 4 chronic kidney disease, or unspecified chronic kidney disease; E11.40 Type 2 diabetes mellitus with diabetic neuropathy, unspecified; G47.33 Obstructive sleep apnea (adult) (pediatric); E11.22 Type 2 diabetes mellitus with diabetic chronic kidney disease; N18.9 Chronic kidney disease, unspecified; E78.5 Hyperlipidemia, unspecified; E66.9 Obesity, unspecified; I50.9 Heart failure, unspecified; K59.00 Constipation, unspecified; H91.90 Unspecified hearing loss, unspecified ear; I44.0 Atrioventricular block, first degree; I69.320 Aphasia following cerebral infarction; D64.9 Anemia, unspecified; E87.6 Hypokalemia; K21.9 Gastro-esophageal reflux disease without esophagitis; R32 Unspecified urinary incontinence; I25.10 Atherosclerotic heart disease of native coronary artery without angina pectoris; M16.0 Bilateral primary osteoarthritis of hip; I69.318 Other symptoms and signs involving cognitive functions following cerebral infarction; Z85.46 Personal history of malignant neoplasm of prostate; Z95.1 Presence of aortocoronary bypass graft; Z91.19 Patient's noncompliance with other medical treatment and regimen; Z79.01 Long term (current) use of anticoagulants; Z79.899 Other long term (current) drug therapy; Z79.02 Long term (current) use of antithrombotics/antiplatelets; Z88.5 Allergy status to narcotic agent; Z88.1 Allergy status to other antibiotic agents; Z95.2 Presence of prosthetic heart valve; Z79.82 Long term (current) use of aspirin; Z68.33 Body mass index [BMI] 33.0-33.9, adult; Z96.651 Presence of right artificial knee joint; Z96.643 Presence of artificial hip joint, bilateral; Z79.4 Long term (current) use of insulin
CPT/HCPCS: 82962; 84132; 87081; 92507; 92508; 92523; 94660; 97110; 97112; 97116; 97150; 97167; 97530; 97535; 99366; J1644; J1815